=== PATIENT | female | born 1980 | race Caucasian/White ===

== ENCOUNTER 2021-12-16 07:46 | Emergency (ER) | payer OTHER ==
[2021-12-16 08:53] LABS: HEMOGLOBIN 14.4 gm/dl (12.3-15.3); RED BLOOD COUNT 4.6 M/UL (4.00-5.10); WHITE BLOOD COUNT 5.9 K/UL (4.5-11.0)
[2021-12-16 09:35] LABS: BUN/CREATININE RATIO 15 (0-10)
== END 2021-12-16 10:45 | disposition home or self-care (01) ==
LOC: ER1 07:46
PROVIDERS: Physician Assistant
DX: R25.1 Tremor, unspecified (principal); E87.6 Hypokalemia; Z88.5 Allergy status to narcotic agent
CPT/HCPCS: 70450; 80053; 85025; 99284

== ENCOUNTER → 2022-05-13 | Outpatient (CLI) | payer OTHER ==
[~2022-05-13] MED LIST: CITALOPRAM HBR40 MG PO; IBUPROFEN200 MG PO; MELOXICAM15 MG PO; PROPRANOLOL HCL60 M1 PO; TYLENOL EXTRA500 MG PO
[2022-05-13 10:30] LABS: HEMOGLOBIN 13.1 gm/dl (12.3-15.3); RED BLOOD COUNT 4.17 M/UL (4.00-5.10); WHITE BLOOD COUNT 9.8 K/UL (4.5-11.0)
== END ==
LOC: OPSV2 09:43
PROVIDERS: Obstetrics & Gynecology
DX: Z01.818 Encounter for other preprocedural examination (principal)
CPT/HCPCS: 36415; 85025; 93005

== ENCOUNTER → 2022-05-20 | Day surgery (SDC) | payer OTHER ==
[~2022-05-20] MED LIST changes: +COLACE 100MG C100 MG PO; +ENDOCET 10-3251 EACH PO; +ESTRACE1 MG PO; +IBUPROFEN600 MG PO
== END | disposition home or self-care (01) ==
LOC: OR 06:25
DX: N80.0 Endometriosis of uterus (principal); F17.200 Nicotine dependence, unspecified, uncomplicated; M19.90 Unspecified osteoarthritis, unspecified site; Z88.5 Allergy status to narcotic agent; Z98.890 Other specified postprocedural states
CPT/HCPCS: 81001; J0690; J1100; J1170; J1200; J1885; J2001; J2250; J2405; J2704; J2795; J3010